=== PATIENT | male | born 1975 | race African-American/Black ===

== ENCOUNTER 2019-11-20 08:15 | Emergency (ER) | payer SELFPAY ==
[~2019-11-20] VITALS: Ht 185.4 cm; Wt 117.9 kg
[~2019-11-20 08:15] MED LIST: ERYTHROMYCIN3.5 GM LEFT EYE; NKM; ONDANSETRON ODT4 MG ORAL; PEPCID20 MG ORAL; PREVACID30 MG ORAL; ZANTAC150 MG ORAL
[2019-11-20 08:37] VITALS: BP 123/86
--- NOTE | 2019-11-20 08:48 | Emergency Room Report ---
History of Present Illness General Chief Complaint: Eye Problems Source: Patient Present Illness HPI Patient presents with eye inflammation. He was seen after having drilled material from concrete and plaster below back into the eye on November 16 (it is November 19 now). His eye was washed and he has been using antibiotics (erythromycin). The vision is clear although he wakes up with some film in the left eye. He denies any pain at this time. The right eye is also involved somewhat. He has not been using antibiotics in the right eye. His eyes usually are puffy but are more so at this time. He says there is been a gradual improvement but now the right eye seems to be involved also. He is concerned about the persistent redness. He says the eyes are not painful at this time. He has no foreign body sensation. He denies fevers or chills. Allergies: Coded Allergies: No Known Allergies (Unverified , 11/01/12) COVID-19 Screening Contact w/high risk pt: No Recent Travel to affected area: No Experienced COVID-19 symptoms?: No COVID-19 Testing performed VAMP THROATER: No Patient History Past Medical History: see triage record, old chart reviewed Social History: Denies: smoking Social History Narrative From home Reviewed Nursing Documentation: PMH: Agreed; PSxH: Agreed Nursing Documentation-PMH Hx Gastrointestinal Problems: Yes - gastritis Review of Systems Constitutional: Denies: fever Eye: Reports: see HPI ENT: Denies: nose congestion Respiratory: Denies: cough Cardiovascular: Denies: chest pain Gastrointestinal: Denies: abdominal pain Skin: Denies: rash Neurological: Denies: headache Physical Exam Vital Signs Date Time Temp Pulse Resp B/P (MAP) Pulse Ox O2 Delivery O2 Flow Rate FiO2 11/20/19 08:19 98.1 84 18 123/86 (98) 98 Room Air Sp02 EP Interpretation: reviewed, normal General Appearance: well appearing, no apparent distress, GCS 15 Head: normocephalic Eyes: bilateral eye PERRL, bilateral eye EOMI, bilateral eye visual acuity - Reported to me is normal, bilateral eye other - Lid retraction: No foreign body. Bilateral periorbital swelling worse on the left-hand side. No pus discharge. Central scleral injection bilaterally worst on the left-hand side. Conjunctival inflammation and cobblestoning worse on the left. Slit-lamp exam performed and no cells in the anterior chamber and no evidence of corneal lesions. Fluorescein was not used. ENT: normal pharynx Respiratory: normal inspection Cardiovascular #1: regular rate, rhythm Cardiovascular #2: 2+ radial (R) Gastrointestinal: normal inspection Musculoskeletal: gait/station normal Neurologic: alert, grossly normal Psychiatric: mood/affect normal Skin: normal color, no rash, warm/dry, other - See eye exam Medical Decision Making Diagnostic Impression: Primary Impression: Allergic conjunctivitis Qualified Codes: H10.13 - Acute atopic conjunctivitis, bilateral Additional Impression: Chemical conjunctivitis of both eyes ER Course Patient presents with eye inflammation bilaterally after having been exposed to plaster and concrete November 19. At that time he had eye irrigation and started antibiotics. Considerations are allergic conjunctivitis, chemical conjunctivitis (concrete), bacterial conjunctivitis amongst others. The fact he has been only using the erythromycin in the left eye and the right eye is now becoming involved suggested there is not a reaction to the erythromycin. Based on slit-lamp exam there are no corneal abrasions and there is no evidence of iritis. The patient reports that he is improving and therefore anti- inflammatory and anti-allergy medications are indicated. Continued use of the antibiotic is also indicated. As the cornea is not involved based injury to the eye excluded. Discussed also that the patient needed to follow-up with an continuity manager sometime in the next few days. Patient stable for outpatient observation and treatment. Last Vital Signs Date Time Temp Pulse Resp B/P (MAP) Pulse Ox O2 Delivery O2 Flow Rate FiO2 11/20/19 09:15 98.1 75 18 123/86 98 Room Air Status: unchanged Disposition: HOME, SELF-CARE Condition: Stable Scripts Naphazoline Hcl/Pheniramine (OPCON-A EYE DROPS) 15 Ml Drops 2 DROP OP Q6HR PRN for inflammation, #10 ML Prov: Cecil Beauchamp MD 11/20/19 Ketorolac Tromethamine/Pf (ACUVAIL 0.45% OPHTH SOLUTION) 1 Each Droperette 1 EACH OP BID, #5 ML Prov: Cecil Beauchamp MD 11/20/19 Referrals: NOT CHOSEN [facility]/,REFERRING (PCP) Cecil Beauchamp MD November 20, 2019 08:48
--- NOTE | 2019-11-20 08:49 | NUR ---
ED Nurse Note:pt. came with left eye swelling and blurry vision, was seen with same complain 3 days ago
[2019-11-20] MEDS ORDERED: OPCON-A EYE DRO15 ML OP (09:05)
[2019-11-20] MEDS ORDERED: ACUVAIL 0.45%1 EACH OP (09:05)
[2019-11-20 09:15] VITALS: BP 123/86
--- NOTE | 2019-11-20 09:15 | NUR ---
ER DISCHARGE NOTE: Patient is cleared to be discharged per ERMD, pt is aox4, on room air, with stable vital signs. pt was given dc and prescription instructions, pt was able to verbalize understanding, pt is able to ambulate with steady gait. pt took all belongings.
== END 2019-11-20 09:15 | disposition home or self-care (01) ==
LOC: EMR 08:30
DX: H10.13 Acute atopic conjunctivitis, bilateral (principal); H10.213 Acute toxic conjunctivitis, bilateral
CPT/HCPCS: 99282

== ENCOUNTER 2019-11-27 08:59 | Emergency (ER) | payer SELFPAY ==
[~2019-11-27] VITALS: Ht 185.4 cm; Wt 111.1 kg
[~2019-11-27 08:59] MED LIST changes: +ACUVAIL 0.45%1 EACH OP; +OPCON-A EYE DRO15 ML OP
[2019-11-27 09:19] VITALS: BP 132/97
--- NOTE | 2019-11-27 09:19 | NUR ---
ED Nurse Note: Patient walked in to ED from home c/o redness on bilateral eyes. Pt was seen here last week for the same reason. Stated that he has a pink eye. Reports blurring of vision. Denies pain/ itchiness. ERMD at bedside.
[2019-11-27] MEDS ORDERED: Fluorescein Strips ONE (09:28)
[2019-11-27] MEDS ORDERED: Fluorescein Strips LEFT EYE ONE (09:30)
--- NOTE | 2019-11-27 09:38 | Emergency Room Report ---
History of Present Illness General Chief Complaint: Eye Problems Source: Patient Present Illness HPI Disclaimer: Please note that this report is being documented using DRAGON technology. This can lead to erroneous entry secondary to incorrect interpretation by the dictating instrument. HPI: 44-year-old male presents for bilateral eye irritation. Proximally 10 days ago the patient was drilling in concrete and plaster having an irritation to his left eye. There initially treated for conjunctivitis with erythromycin however the inflammation and redness around his eye spread to the right. He was seen in the emergency department again and started on Acuvail and Opcon. Patient followed up with his certified pharmacy technician to continue these medications. He notes persistent eye irritation and swelling with increased lacrimation worse in the morning. He notes initial blurry vision that clears throughout the day. Denies eye pain, foreign body sensation, fever, chills, purulent drainage. Denies changes in his vision otherwise, loss of vision, changes in visual cardenas. Patient has an appointment to see his certified pharmacy technician today at 1:30 PM. Allergies: Coded Allergies: No Known Allergies (Unverified , 11/01/12) COVID-19 Screening Contact w/high risk pt: No Recent Travel to affected area: No Experienced COVID-19 symptoms?: No COVID-19 Testing performed SURGICAL SCRUB TECH: No Nursing Documentation-[facility] Past Medical History: No History, Except For Hx Gastrointestinal Problems: Yes - gastritis Review of Systems All Other Systems: negative except mentioned in HPI Physical Exam Vital Signs Date Time Temp Pulse Resp B/P (MAP) Pulse Ox O2 Delivery O2 Flow Rate FiO2 11/27/19 09:07 98.4 90 16 132/97 (109) 97 Room Air General: Awake and alert, no acute distress HEENT: NC/AT. EOMI. PERRLA. Visual cardenas are full. Sclera injected bilaterally with mild edema. No purulent drainage. Increased lacrimation. No hyphema, no hypopyon. Visual acuity: OS 20/30, OD 20/25, OU 20/25 Mujica lamp exam: No corneal abrasions, no ulcers, no dendrites, negative Brandy Intraocular pressures: OS 17, OD 19 Resp: Normal work of breathing Skin: Intact. No abrasions, laceration or rash over the exposed skin MSK: Normal tone and bulk. Moving all extremities. No obvious deformity. Neuro: Awake and alert. Mentating appropriately Medical Decision Making Diagnostic Impression: Primary Impression: Chemical conjunctivitis of both eyes Additional Impression: Allergic conjunctivitis ER Course 44-year-old male presents for evaluation of persistent eye irritation following a dust and concrete exposure approximately 10 days ago. There is some evidence of edema though his visual cardenas and visual acuity are intact without findings of corneal abrasion, ulcers, ocular injury otherwise. No evidence of vascular. Drainage to suggest a bacterial conjunctivitis and patient was already treated with erythromycin. He has been on anti-inflammatories, Acuvail and Opcon without significant improvement. No evidence of uveitis or glaucoma. May be a persistent allergic conjunctivitis or chemical conjunctivitis. Patient was contacted by his certified pharmacy technician during his ED visit and will proceed immediately to their office for evaluation and further management. For this reason we will not prescribe any additional medications. He can return to the emergency room new or worsening symptoms. Last Vital Signs Date Time Temp Pulse Resp B/P (MAP) Pulse Ox O2 Delivery O2 Flow Rate FiO2 11/27/19 09:19 98.4 68 16 132/97 97 Room Air Disposition: HOME, SELF-CARE Condition: Stable Referrals: NOT CHOSEN [facility]/,REFERRING (PCP) Clarence Domínguez MD Nov 27, 2019 09:38
[2019-11-27 09:39] VITALS: BP 132/97
--- NOTE | 2019-11-27 09:39 | NUR ---
ED Nurse Note: Pt cleared by ERMD for discharge. DC instructions was given and explained to pt and verbalized understanding of teachings. All medical deviecs such as ID band removed. Pt is AAO x4, ambulatory and left with all personal belongings.
== END 2019-11-27 09:39 | disposition home or self-care (01) ==
LOC: EMR 09:21
DX: H10.213 Acute toxic conjunctivitis, bilateral (principal); H10.13 Acute atopic conjunctivitis, bilateral
CPT/HCPCS: 99281